=== PATIENT | female | born 1945 | race Caucasian/White ===

== ENCOUNTER → 2018-05-23 | Outpatient (CLI) | payer MEDICARE, OTHER ==
--- NOTE | 2018-05-23 16:41 | XCELERA REPORT ---
[address] [address] Transthoracic Echocardiogram Report Name: MARY MAYFIELD Age: 72 yrs Gender: Female : 1945 Patient Status: Preadmit Patient Location: [facility] Study Date: 05/23/2018 02:17 PM Height: 63 in Weight: 116 lb BSA: 1.5 m2 Reason For Study: HTN Ordering Physician: RIGOBERTO HUGGINS Performed By: Akila Mojica Interpretation Summary Limited study, pt could not reposition to LL decub for imaging AV poorly visualised, no increase peak usman. to suggest ASand no AR seen inlimited views MV showed mild mitral annulat calcification.,No MS, No MR, and no LA enlargement. LV showed no LVH, no LV enlargement, probably no segmental disease. LVEF is normal , stage I LV diastolic dysfunction. RH poorly imaged unable to get TR jet to estim RVSP. MMode/2D Measurements & Calculations RVDd: 2.2 cm LVIDd: 3.8 cm FS: 34.0 % Ao root diam: 2.9 cm IVSd: 0.90 cm LVIDs: 2.5 cm EDV(Teich): 62.4 ml LVPWd: 0.89 cm ESV(Teich): 22.6 ml Ao root area: 6.8 cm2 LA dimension: 2.8 cm EF(Teich): 63.7 % Doppler Measurements & Calculations MV E max usman: MV P1/2t max usman: Ao V2 max: LV V1 max P.6 cm/sec 70.1 cm/sec 90.9 cm/sec 2.6 mmHg MV A max usman: MV P1/2t: 32.5 msec Ao max PG: LV V1 max: 92.8 cm/sec MVA(P1/2t): 6.8 cm2 3.3 mmHg 80.5 cm/sec MV E/A: 0.74 MV dec slope: 630.8 cm/sec2 MV dec time: 0.13 sec PA V2 max: MV P1/2t-pr_phl: 111.6 cm/sec 32.5 msec PA max P.0 mmHg Left Ventricle The left ventricle is grossly normal size. There is normal left ventricular wall thickness. The left ventricular ejection fraction is normal. LV EF is 65%. Doppler measurements suggest impaired left ventricular relaxation, which is associated with grade I/IV or mild diastolic dysfunction. No regional wall motion abnormalities noted. There is no thrombus. Right Ventricle The right ventricle is grossly normal size. Atria The right atrium is normal. The left atrial size is normal. The interatrial septum is intact with no evidence for an atrial septal defect. Mitral Valve There is mild mitral annular calcification. There is no evidence of mitral valve prolapse. There is no mitral valve stenosis. There is no mitral regurgitation noted. Aortic Valve The aortic valve is not well visualized secondary to technical limitations. The aortic valve is trileaflet. The aortic valve opens well. Cannot exclude aortic valvular vegetation. There is no aortic valve stenosis. No aortic regurgitation is present. Tricuspid Valve The tricuspid valve is not well visualized secondary to technical limitations. Tricuspid regurgitation jet envelope not well defined to measure RV systolic pressure accurately. Pulmonic Valve The pulmonic valve is not well visualized. Great Vessels The aortic root is not well visualized but is probably normal size. Effusions Minimal pericardial effusion. I WMSI = 1.00 % Normal = 100 Segments Size X - Cannot 2 - 4 - 1-2 small Interpret 1 - Normal Hypokinetic 3 - AkineticDyskinetic 3-5 moderate 5 - 6-14 large Aneurysmal 15-16 diffuse : RIGOBERTO HUGGINS > [employer]
== END ==
LOC: SP 16:02
PROVIDERS: ATTEND Family Medicine
DX: J90 Pleural effusion, not elsewhere classified (principal); I10 Essential (primary) hypertension
CPT/HCPCS: 93306

== ENCOUNTER → 2018-08-08 | Outpatient (CLI) | payer MEDICARE, OTHER ==
--- NOTE | 2018-08-08 11:53 | WOMENS IMAGING REPORT ---
EXAM DESCRIPTION: BONE DENSITY HIP/SPINE COMPLETED DATE/TIME: 08/08/2018 10:41 am REASON FOR STUDY: M81.0 AGE RELATED OSTEOPOROSIS WITHOUT CURRENT PATHOLOGICAL FRACTURE OSTEOP M81.0 AGE-RELATED OSTEOPOROSIS W/O CURRENT PATHOLOGICAL FRAC COMPARISON: 2005 TECHNIQUE: Dual-Energy X-ray Absorptiometry (DEXA) of the AP Spine and Hip. LIMITATIONS: None. FINDINGS: LUMBAR SPINE: The bone mineral density (BMD) measured from L1-L4 in the AP projection correlates with a T-score of -2.2, previously -2.0, which is osteopenia as defined by the World Health Organization. HIP: The bone mineral density (BMD) measured in the left hip correlates with a T-score of -3.0, which is o steoporosis as defined by the World Health Organization. IMPRESSION: 1. LUMBAR SPINE: OSTEOPENIA. 2. HIP: OSTEOPOROSIS. COMMENT: The World Health Organization defines low BMD as follows: T-score: Normal: Greater than -1.0 Osteopenia: Between -1.0 and -2.5 Osteoporosis: Less than -2.5 without fractures Established osteoporosis: Less than -2.5 with fractures In general, you may wish to consider: Diagnosis Treatment Follow-up DEXA Normal BMD Prevention 2-3 years Osteopenia Prevention/Therapy 1-2 years Osteoporosis Therapy Yearly TECHNICAL DOCUMENTATION: JOB ID: [id number]- All Rights Reserved Reading location - IP/workstation name: [email or web address]
== END ==
LOC: WI 09:55
PROVIDERS: ATTEND Family Medicine
DX: M81.0 Age-related osteoporosis without current pathological fracture (principal)
CPT/HCPCS: 77080